=== PATIENT | female | born 1965 | race Caucasian/White ===

== ENCOUNTER → 2018-02-24 | Outpatient (CLI) | payer OTHER ==
--- NOTE | 2018-02-24 12:24 | RAD ---
Examination: 2 views of the bilateral knees HISTORY: History of bilateral knee pain COMPARISON: None available FINDINGS: Right knee: There is severe joint space loss identified in the medial, lateral, patellofemoral compartments with large osteophyte formation. Joint space loss is most severe in the medial compartment with the minimal depression of the medial tibial plateau. Multiple subchondral cystic changes identified in the medial, lateral compartment femoral compartments. Chondrocalcinosis identified in the lateral compartment Minimal knee joint effusion Left knee: Severe joint space loss identified in the medial compartment of the left knee with small osteophyte formation. Mild to moderate joint space loss identified in the lateral, patellofemoral compartments. There is a bony density identified in the projecting in the knee joint and projecting over the quadriceps tendon measuring about 9 mm could be a loose body or soft tissue calcification. IMPRESSION: 1. Severe tricompartmental degenerative changes right knee. 2. Severe degenerative changes medial compartment of the left knee. Moderate degenerative changes lateral, patellofemoral compartments of the left knee. 3. There is a bony density identified in the projecting in the left knee joint and projecting over the quadriceps tendon measuring about 9 mm could be a loose body or soft tissue calcification. Electronically signed by: Scott Mckeon MD (02/24/2018 12:21 PM) [id number]
== END | disposition home or self-care (01) ==
LOC: DXRAD 11:50
PROVIDERS: ATTEND Internal Medicine Infectious Disease
DX: M25.461 Effusion, right knee (principal); M25.762 Osteophyte, left knee; M25.761 Osteophyte, right knee; J45.909 Unspecified asthma, uncomplicated
CPT/HCPCS: 73560

== ENCOUNTER → 2018-08-08 | Outpatient (CLI) | payer OTHER ==
--- NOTE | 2018-08-08 16:29 | RAD ---
3 views lumbar spine without comparison for back pain for one year, disability determination. FINDINGS: There is no fracture or acute osseous or alignment abnormality of the lumbar spine. Intervertebral disc spaces appear well maintained save for perhaps very mild narrowing at L5-S1. Moderate facet arthrosis at L4-5 and L5-S1 is present. There is also degenerative disc disease in the lower thoracic spine at T10-11 and particularly T11-12, with some sclerotic endplate changes at T11-12. Moderate multifocal atherosclerosis is seen. IMPRESSION: 1. No acute osseous or alignment abnormality of the lumbar spine. 2. Multifocal degenerative disc disease as described, findings are most notable at T11-12. Electronically signed by: Yasmani Rapp MD (08/08/2018 4:25 PM) [id number]
== END | disposition home or self-care (01) ==
LOC: RAD 09:31
PROVIDERS: ATTEND Surgery
DX: M47.897 Other spondylosis, lumbosacral region (principal); M51.34 Other intervertebral disc degeneration, thoracic region; I70.0 Atherosclerosis of aorta
CPT/HCPCS: 72100